=== PATIENT | female | born 1985 | race Caucasian/White ===

== ENCOUNTER 2017-04-07 17:14 | Emergency (ER) | payer MEDICAID ==
[~2017-04-07] VITALS: Ht 162.6 cm; Wt 62.7 kg
[2017-04-07 19:36] VITALS: BP 138/68
== END 2017-04-07 19:37 | disposition home or self-care (01) ==
LOC: ED 17:14
DX: S59.802A Other specified injuries of left elbow, initial encounter (principal); W06.XXXA Fall from bed, initial encounter; Y93.89 Activity, other specified; Y99.8 Other external cause status; Y92.89 Other specified places as the place of occurrence of the external cause